=== PATIENT | female | born 1935 | race Caucasian/White ===

== ENCOUNTER 2017-11-27 17:00 | Outpatient (CLI) | payer MEDICARE, OTHER | END 2017-11-27 17:01 | disposition home or self-care (01) | LOC: SLEEPLAB 17:00 | PROVIDERS: ATTEND Internal Medicine | DX: G47.33 Obstructive sleep apnea (adult) (pediatric) (principal); K21.9 Gastro-esophageal reflux disease without esophagitis; I10 Essential (primary) hypertension; R35.1 Nocturia; R06.83 Snoring | CPT/HCPCS: 95806 ==

== ENCOUNTER 2017-12-02 15:03 | Outpatient (CLI) | payer MEDICARE | END 2017-12-02 15:04 | disposition home or self-care (01) | LOC: BICMAMMO 15:03 | PROVIDERS: ATTEND Obstetrics & Gynecology | DX: Z12.31 Encounter for screening mammogram for malignant neoplasm of breast (principal); Z85.3 Personal history of malignant neoplasm of breast | CPT/HCPCS: 77063; 77067 ==

== ENCOUNTER 2019-03-15 09:46 | Emergency (ER) | payer MEDICARE ==
[2019-03-15] MEDS ORDERED: HYDROcodone/Acetaminophen 10/325 mg Tablet ONE (10:07)
--- NOTE | 2019-03-15 10:28 | RAD ---
Exam: AP pelvis: HISTORY: Injury from trauma, fall, pain FINDINGS: Minimally comminuted minimally displaced fractures involving the right superior and inferior pubic ra mi as well as a minimally comminuted fracture involving the right sacral alar region. Bilateral total hip replacement. IMPRESSION: Minimally displaced comminuted fractures involving the right superior and inferior pubic rami and rig ht sacral alar region.
--- NOTE | 2019-03-15 10:30 | RAD ---
Exam: Right hip 2 views: HISTORY: Right hip injury from trauma with pain FINDINGS: Minimally comminuted displaced fractures involving the right superior and inferior pubic rami and rig ht sacral alar region. No evidence for right femur periprosthetic fracture or right hip prosthesis dislocation. IMPRESSION: Right pubic fractures and right sacral alar region fracture.
[2019-03-15 10:50] LABS: #Lymphocytes 1.4 thou/uL (1.20-3.40); #Monocytes 0.9 thou/uL (0.11-0.59); #Neutrophils 5.6 thou/uL (1.40-6.50); %Basophils 0.5 % (0.0-1.0); %Eosinophils 0.3 % (0.0-10.0); %Lymphocytes 17.6 % (21.0-51.0); %Monocytes 11.5 % (0.0-10.0); %Neutrophils 70.1 % (42.0-75.0); Hemoglobin 12.7 g/dL (12.0-16.0); Mean Corpuscular HGB CONC 33.4 g/dL (32.0-36.0); Mean Corpuscular Hemoglobin 31.8 pg (27.0-31.0); Mean Platelet Volume 7.6 fL (7.4-10.4); Platelet Count 192 thou/uL (130-400); RBC Distribution Width 14.6 % (11.5-14.5)
[2019-03-15] MEDS ORDERED: Ondansetron PF 4 MG/2 ML Vial ONE (10:50)
[2019-03-15] MEDS ORDERED: Morphine 2 MG/ML SYRINGE ONE (10:50)
[2019-03-15 10:57] LABS: Prothrombin Time 12.8 SEC (12.0-14.7)
[2019-03-15 10:58] LABS: PTT 35.2 SEC (22.9-36.1)
[2019-03-15 11:10] LABS: ALT (SGPT) 13 U/L (8-55); AST (SGOT) 23 U/L (5-34); Albumin 4.1 g/dL (3.4-4.8); Alkaline Phosphatase 91 U/L (40-150); Anion Gap 16 mmol/L (10-20); BUN (Urea Nitrogen) 22 mg/dL (9.8-20.1); Bilirubin, Total 0.7 mg/dL (0.2-1.2); Calc. Creatinine Clearance 0 mL/min (70-130); Carbon Dioxide 26 mmol/L (23-31); Chloride 99 mmol/L (98-107); Estimated GFR-MDRD 44; Globulin 2.8 g/dL (2.4-3.5); Glucose 110 mg/dL (83-110); Potassium 3.7 mmol/L (3.5-5.1); Protein, Total 6.9 g/dL (6.0-8.3); Sodium 137 mmol/L (136-145)
--- NOTE | 2019-03-15 11:29 | CT ---
CT BRAIN NONCONTRAST: DATE: 03/15/2019 HISTORY: 83-year-old female status post acute head trauma. FINDINGS: There is no evidence of acute intra-axial or extra-axial hemorrhage. There is no midline shift or any other mass effect. There is no extra-axial fluid collection. There is no evidence of obstructive hydrocephalus. Calvarium is intact. There is diffuse brain parenchymal volume loss. There are low att enuation areas in the white matter. These are nonspecific, but in a patient of this age, they are probably chronic ischemic white matter changes due to microvascular atherosclerosis. There are severa l tiny old lacunar infarctions in bilateral basal ganglia. There is a right lateral superficial soft tissue scalp hematoma. IMPRESSION: 1) No acute intracranial findings. 2) involutional changes and chronic ischemic white matter changes. 3) several tiny old lacunar infarctions in bilateral basal ganglia. 4) acute, traumatic right temporal parietal scalp hematoma.
[2019-03-15 12:41] LABS: Bilirubin Negative (Negative); Blood, Urine Negative (Negative); Glucose, Urine (Dipstick) Negative (Negative); Leukocyte Negative (Negative); Nitrite Negative (Negative); Protein, Urine (Dipstick) Negative (Neg-Trace); Urobilinogen 0.2 mg/dL (Less than 2)
[2019-03-15 12:43] LABS: RBC/HPF None Seen HPF (0-3); Squamous Epithelial 0-3 HPF (0-3); WBC/HPF 0-3 HPF (0-3)
[2019-03-15 12:44] LABS: Bacteria/HPF None Seen HPF (None Seen); Clarity Clear (Clear)
== END 2019-03-15 17:02 ==
LOC: ERS 09:46
DX: S32.591A Other specified fracture of right pubis, initial encounter for closed fracture (principal); W18.30XA Fall on same level, unspecified, initial encounter
CPT/HCPCS: 36415; 70450; 72170; 80053; 81003; 85025; 85610; 85730; 93005; 96374; 96375; J2270; J2405

== ENCOUNTER 2023-04-08 23:51 | Inpatient (IN) | payer MEDICARE ==
[2023-04-09 01:29] LABS: #Eosinphils 0.5 thou/uL (0.0-0.7); #Monocytes 0.9 thou/uL (0.11-0.59); #Neutrophils 2.8 thou/uL (1.40-6.50); %Basophils 0.6 % (0.0-1.0); %Eosinophils 8.4 % (0.0-10.0); %Lymphocytes 32.1 % (21.0-51.0); %Monocytes 14.9 % (0.0-10.0); %Neutrophils 43.8 % (42.0-75.0); Hematocrit 42.3 % (36.0-47.0); Mean Corpuscular HGB CONC 33.1 g/dL (32.0-36.0); Mean Corpuscular Hemoglobin 30.4 pg (27.0-31.0); Mean Platelet Volume 10.1 fL (7.4-10.4); Platelet Count 211 10x3/uL (130-400); RBC Distribution Width 13.4 % (11.5-14.5); White Blood Cell (WBC) Count 6.3 10x3/uL (4.8-10.8)
[2023-04-09 01:54] LABS: ALT (SGPT) 9 U/L (8-55); AST (SGOT) 17 U/L (5-34); Albumin 3.7 g/dL (3.4-4.8); Alkaline Phosphatase 78 U/L (40-110); Anion Gap 16 mmol/L (10-20); BUN (Urea Nitrogen) 19 mg/dL (9.8-20.1); Bilirubin, Total 0.3 mg/dL (0.2-1.2); CK (CPK) 72 U/L (29-168); Calc. Creatinine Clearance 0 mL/min (70-130); Carbon Dioxide 24 mmol/L (23-31); Chloride 102 mmol/L (98-107); Estimated GFR 48; Glucose 107 mg/dL (83-110); Potassium 3.9 mmol/L (3.5-5.1); Protein, Total 6.7 g/dL (5.8-8.1); Sodium 138 mmol/L (136-145)
[2023-04-09 03:24] LABS: Bacteria/HPF 1+ HPF (None Seen); Bilirubin Negative (Negative); Blood, Urine Negative (Negative); CAUTI Indications for Culture < 2yrs of age; Clarity Clear (Clear); Glucose, Urine (Dipstick) Normal (Negative); Ketone, Urine Negative (Negative); Leukocyte 250 Leu/uL (Negative); Nitrite 1+ (Negative); Protein, Urine (Dipstick) Negative (Neg-Trace); RBC/HPF None Seen HPF (0-3); Specific Gravity, Urine 1.011 (1.002-1.036); Squamous Epithelial None Seen HPF (0-3); Urobilinogen Normal mg/dL (Less than 2); pH, Urine 6.5 (5.0-9.0)
[2023-04-09 03:27] LABS: Urine Culture Reflex Yes Yes
[2023-04-09 04:07] LABS: Calcium 9.1 mg/dL (7.8-10.44)
[2023-04-09] MEDS ORDERED: cefTRIAXone (ROCEPHIN) 1 GM VIAL ONE (04:32)
[2023-04-09] MEDS ORDERED: Acetaminophen 325 MG TAB PO PRN (05:01)
[2023-04-09] MEDS ORDERED: Lactated Ringer's 1,000 ML IV SCH (05:15)
[2023-04-09 05:40] LABS: Troponin I Less than 0.010 ng/mL (< 0.028)
[2023-04-09] MEDS ORDERED: [UNRECOGNIZED DRUG - OTHER] PO SCH (06:30)
[2023-04-09] MEDS ORDERED: FISH OIL PO SCH (06:30)
[2023-04-09] MEDS ORDERED: EPA PO SCH (06:30)
[2023-04-09] MEDS ORDERED: DHA PO SCH (06:30)
[2023-04-09] MEDS ORDERED: OMEGA PO SCH (06:30)
[2023-04-09 06:48] LABS: Hemoglobin A1c 5.3 % (4.0-6.0)
[2023-04-09] MEDS ORDERED: Lorazepam 1 MG TAB PO SCH (08:45)
[2023-04-09 08:52] LABS: Troponin I Less than 0.010 ng/mL (< 0.028)
[2023-04-09] MEDS ORDERED: Ondansetron ODT 4 MG TAB PO PRN (08:52)
[2023-04-09] MEDS ORDERED: Ondansetron PF 4 MG/2 ML Vial IVP PRN (08:52)
[2023-04-09] MEDS ORDERED: Non-Formulary Item 1 EACH (Potassium Chloride [Potassium Chloride] 10 MEQ Capsule.Er) PO SCH (09:00)
[2023-04-09] MEDS ORDERED: Non-Formulary Item 1 EACH (Sertraline Hcl [Zoloft] 20 MG/1 ML Ml) PO SCH (09:00)
[2023-04-09] MEDS ORDERED: Cetirizine HCl 10 MG TAB PO SCH (09:00)
[2023-04-09] MEDS: Fish Oil 1,000 MG CAP PO SCH (09:20)
[2023-04-09] MEDS: Loratadine 10 MG TAB PO SCH (09:20)
[2023-04-09] MEDS: Potassium Chloride 10 MEQ TAB PO SCH ×2 (09:20→22:58)
[2023-04-09] MEDS: Sertraline 25 MG TAB PO SCH (09:20)
[2023-04-09 10:18] VITALS: BMI 28.3
[2023-04-09] MEDS ORDERED: Aspirin Chewable 81 MG TAB PO SCH (13:30)
[2023-04-09] MEDS ORDERED: Lisinopril 10 MG TAB PO SCH ×2 (15:30→16:30)
[2023-04-09] MEDS ORDERED: hydrALAZINE 20 MG/ML VIAL SLOW IVP PRN (16:22)
[2023-04-09] MEDS ORDERED: Amlodipine 5 MG TAB PO SCH (18:00)
[2023-04-09] MEDS: Atorvastatin Calcium 40 MG TAB PO SCH (22:57)
[2023-04-09] MEDS: Donepezil HCl 10 MG TAB PO SCH (22:57)
[2023-04-10] MEDS ORDERED: cefTRIAXone\\ROCEPHIN 2 GM in Sodium Chloride 0.9% 100 ML IVPB SCH (04:00)
[2023-04-10 05:22] LABS: #Basophils 0.1 thou/uL (0.0-0.2); #Eosinphils 0.4 thou/uL (0.0-0.7); #Neutrophils 2.8 thou/uL (1.40-6.50); %Basophils 0.8 % (0.0-1.0); %Eosinophils 6.6 % (0.0-10.0); %Lymphocytes 33.1 % (21.0-51.0); %Monocytes 15.5 % (0.0-10.0); %Neutrophils 43.8 % (42.0-75.0); Hematocrit 40.5 % (36.0-47.0); Hemoglobin 13.3 g/dL (12.0-16.0); Mean Corpuscular HGB CONC 32.8 g/dL (32.0-36.0); Mean Corpuscular Hemoglobin 30.6 pg (27.0-31.0); Mean Corpuscular Volume 93.1 fl (78.0-98.0); Mean Platelet Volume 9.9 fL (7.4-10.4); Platelet Count 209 10x3/uL (130-400); RBC Distribution Width 13.5 % (11.5-14.5); Red Blood Cell (RBC) Count 4.35 mill/uL (4.20-5.40); White Blood Cell (WBC) Count 6.5 10x3/uL (4.8-10.8)
[2023-04-10 05:46] LABS: ALT (SGPT) 9 U/L (8-55); AST (SGOT) 16 U/L (5-34); Albumin 3.3 g/dL (3.4-4.8); Alkaline Phosphatase 71 U/L (40-110); Anion Gap 13 mmol/L (10-20); BUN (Urea Nitrogen) 17 mg/dL (9.8-20.1); Bilirubin, Total 0.5 mg/dL (0.2-1.2); Calc. Creatinine Clearance 43 mL/min (70-130); Carbon Dioxide 25 mmol/L (23-31); Cardiac Risk 4.1 (Less than 4.5); Chloride 102 mmol/L (98-107); Cholesterol 201 mg/dl (< 200 Desired); Estimated GFR 50; Globulin 2.8 g/dL (2.4-3.5); Glucose 95 mg/dL (83-110); HDL Cholesterol 49 mg/dL (>60 Neg Risk); LDL Cholesterol, Calculated 122 mg/dL; Potassium 3.7 mmol/L (3.5-5.1); Protein, Total 6.1 g/dL (5.8-8.1); Sodium 136 mmol/L (136-145); Triglycerides 149 mg/dL (Less than 150)
[2023-04-10] MEDS: cefTRIAXone\\ROCEPHIN 1 GM in Sodium Chloride 0.9% 100 ML IVPB SCH (06:29)
[2023-04-10] MEDS ORDERED: Lisinopril 10 MG TAB PO SCH (09:00)
[2023-04-10] MEDS: Aspirin 81 mg Enteric Coated Tablet PO SCH (10:00)
[2023-04-10] MEDS: Amlodipine 5 MG TAB PO SCH (10:00)
[2023-04-10] MEDS: Sertraline 25 MG TAB PO SCH (10:00)
[2023-04-10] MEDS: Fish Oil 1,000 MG CAP PO SCH (10:00)
[2023-04-10] MEDS: Loratadine 10 MG TAB PO SCH (10:01)
[2023-04-10] MEDS: Lisinopril 20 MG TAB PO SCH (10:01)
[2023-04-10] MEDS: Potassium Chloride 10 MEQ TAB PO SCH ×2 (10:01→21:15)
[2023-04-10] MEDS: Atorvastatin Calcium 40 MG TAB PO SCH (21:14)
[2023-04-10] MEDS: Donepezil HCl 10 MG TAB PO SCH (21:15)
[2023-04-11 04:26] LABS: #Basophils 0.1 thou/uL (0.0-0.2); #Eosinphils 0.4 thou/uL (0.0-0.7); #Monocytes 1.1 thou/uL (0.11-0.59); #Neutrophils 3.1 thou/uL (1.40-6.50); %Basophils 0.7 % (0.0-1.0); %Eosinophils 6.4 % (0.0-10.0); %Lymphocytes 30.7 % (21.0-51.0); %Monocytes 16.2 % (0.0-10.0); %Neutrophils 45.9 % (42.0-75.0); Hematocrit 42.3 % (36.0-47.0); Hemoglobin 13.8 g/dL (12.0-16.0); Mean Corpuscular HGB CONC 32.6 g/dL (32.0-36.0); Mean Corpuscular Hemoglobin 30.7 pg (27.0-31.0); Mean Platelet Volume 10.2 fL (7.4-10.4); Platelet Count 238 10x3/uL (130-400); RBC Distribution Width 13.7 % (11.5-14.5); White Blood Cell (WBC) Count 6.7 10x3/uL (4.8-10.8)
[2023-04-11 04:51] LABS: ALT (SGPT) 9 U/L (8-55); AST (SGOT) 16 U/L (5-34); Albumin 3.5 g/dL (3.4-4.8); Alkaline Phosphatase 77 U/L (40-110); Anion Gap 14 mmol/L (10-20); BUN (Urea Nitrogen) 21 mg/dL (9.8-20.1); Bilirubin, Total 0.4 mg/dL (0.2-1.2); Calc. Creatinine Clearance 37 mL/min (70-130); Calcium 8.7 mg/dL (7.8-10.44); Carbon Dioxide 22 mmol/L (23-31); Chloride 102 mmol/L (98-107); Estimated GFR 43; Globulin 2.8 g/dL (2.4-3.5); Glucose 100 mg/dL (83-110); Potassium 4.4 mmol/L (3.5-5.1); Protein, Total 6.3 g/dL (5.8-8.1); Sodium 134 mmol/L (136-145)
[2023-04-11] MEDS: cefTRIAXone\\ROCEPHIN 1 GM in Sodium Chloride 0.9% 100 ML IVPB SCH (05:56)
[2023-04-11] MEDS: Aspirin 81 mg Enteric Coated Tablet PO SCH (08:46)
[2023-04-11] MEDS: Fish Oil 1,000 MG CAP PO SCH (08:46)
[2023-04-11] MEDS: Lisinopril 20 MG TAB PO SCH (08:46)
[2023-04-11] MEDS: Sertraline 25 MG TAB PO SCH (08:46)
[2023-04-11] MEDS: Amlodipine 5 MG TAB PO SCH (08:46)
[2023-04-11] MEDS: Loratadine 10 MG TAB PO SCH (08:47)
[2023-04-11] MEDS: Atorvastatin Calcium 40 MG TAB PO SCH (21:47)
[2023-04-11] MEDS: Donepezil HCl 10 MG TAB PO SCH (21:48)
[2023-04-11] MEDS ORDERED: cefTRIAXone (ROCEPHIN) 1 GM VIAL IM SCH (23:00)
[2023-04-12 04:37] LABS: #Eosinphils 0.4 thou/uL (0.0-0.7); #Monocytes 1.1 thou/uL (0.11-0.59); #Neutrophils 4.4 thou/uL (1.40-6.50); %Basophils 0.4 % (0.0-1.0); %Eosinophils 4.9 % (0.0-10.0); %Lymphocytes 22.1 % (21.0-51.0); %Monocytes 14.3 % (0.0-10.0); %Neutrophils 58.2 % (42.0-75.0); Hematocrit 45.3 % (36.0-47.0); Hemoglobin 14.7 g/dL (12.0-16.0); Mean Corpuscular HGB CONC 32.5 g/dL (32.0-36.0); Mean Corpuscular Hemoglobin 30.8 pg (27.0-31.0); Mean Corpuscular Volume 94.8 fl (78.0-98.0); Mean Platelet Volume 10.2 fL (7.4-10.4); Platelet Count 220 10x3/uL (130-400); RBC Distribution Width 13.6 % (11.5-14.5); Red Blood Cell (RBC) Count 4.78 mill/uL (4.20-5.40); White Blood Cell (WBC) Count 7.6 10x3/uL (4.8-10.8)
[2023-04-12 05:03] LABS: ALT (SGPT) 12 U/L (8-55); AST (SGOT) 23 U/L (5-34); Albumin 3.9 g/dL (3.4-4.8); Alkaline Phosphatase 90 U/L (40-110); Anion Gap 14 mmol/L (10-20); BUN (Urea Nitrogen) 20 mg/dL (9.8-20.1); Bilirubin, Total 0.4 mg/dL (0.2-1.2); Calc. Creatinine Clearance 36 mL/min (70-130); Calcium 9.5 mg/dL (7.8-10.44); Carbon Dioxide 24 mmol/L (23-31); Chloride 101 mmol/L (98-107); Estimated GFR 41; Globulin 3.2 g/dL (2.4-3.5); Glucose 119 mg/dL (83-110); Potassium 3.8 mmol/L (3.5-5.1); Protein, Total 7.1 g/dL (5.8-8.1); Sodium 135 mmol/L (136-145)
[2023-04-12] MEDS ORDERED: cefTRIAXone (ROCEPHIN) 1 GM VIAL IM SCH (06:00)
[2023-04-12 07:53] VITALS: BP 166/75; TEMP 97.6
[2023-04-12] MEDS: Sertraline 25 MG TAB PO SCH (08:19)
[2023-04-12] MEDS: Lisinopril 20 MG TAB PO SCH (08:20)
[2023-04-12] MEDS: Loratadine 10 MG TAB PO SCH (08:20)
[2023-04-12] MEDS: Amlodipine 5 MG TAB PO SCH (08:21)
[2023-04-12] MEDS: Fish Oil 1,000 MG CAP PO SCH (08:22)
[2023-04-12] MEDS ORDERED: Aspirin 325 MG TAB PO SCH (09:00)
== END 2023-04-12 10:19 | DRG 65 ==
LOC: ERS 23:51 → ERHOLD 04-09 04:36 → 2SE 04-09 08:10 → OBSVTOIN 04-09 12:55
PROVIDERS: ADMIT Family Medicine; ATTEND Family Medicine
DX: I63.9 Cerebral infarction, unspecified (principal); G81.91 Hemiplegia, unspecified affecting right dominant side; N39.0 Urinary tract infection, site not specified; F03.90 Unspecified dementia, unspecified severity, without behavioral disturbance, psychotic disturbance, mood disturbance, and anxiety; N18.30 Chronic kidney disease, stage 3 unspecified; I12.9 Hypertensive chronic kidney disease with stage 1 through stage 4 chronic kidney disease, or unspecified chronic kidney disease; Z66 Do not resuscitate; B96.20 Unspecified Escherichia coli [E. coli] as the cause of diseases classified elsewhere; E78.5 Hyperlipidemia, unspecified; N18.31 Chronic kidney disease, stage 3a; F32.9 Major depressive disorder, single episode, unspecified; Z96.643 Presence of artificial hip joint, bilateral; Z96.653 Presence of artificial knee joint, bilateral; R53.81 Other malaise; I48.91 Unspecified atrial fibrillation; Z86.718 Personal history of other venous thrombosis and embolism; Z79.899 Other long term (current) drug therapy; Z86.73 Personal history of transient ischemic attack (TIA), and cerebral infarction without residual deficits
CPT/HCPCS: 36415; 70450; 70551; 71045; 80053; 80061; 81001; 82550; 83036; 84443; 84484; 85025; 87077; 87086; 87186; 93005; 93306; 93880; 93970; 95712; 95819; 95957; 96372; 96374; G0378; J0360; J0696; J1650; J3490; J7120

== ENCOUNTER 2023-04-17 17:03 | Inpatient (IN) | payer MEDICARE ==
[2023-04-17 19:40] LABS: #Eosinphils 0.5 thou/uL (0.0-0.7); #Monocytes 0.8 thou/uL (0.11-0.59); #Neutrophils 3.4 thou/uL (1.40-6.50); %Basophils 0.5 % (0.0-1.0); %Eosinophils 7.4 % (0.0-10.0); %Lymphocytes 25.4 % (21.0-51.0); %Monocytes 12.8 % (0.0-10.0); %Neutrophils 53.6 % (42.0-75.0); Hematocrit 40.2 % (36.0-47.0); Hemoglobin 13.2 g/dL (12.0-16.0); Mean Corpuscular HGB CONC 32.8 g/dL (32.0-36.0); Mean Corpuscular Hemoglobin 30.9 pg (27.0-31.0); Mean Corpuscular Volume 94.1 fl (78.0-98.0); Mean Platelet Volume 10.5 fL (7.4-10.4); Platelet Count 219 10x3/uL (130-400); RBC Distribution Width 13.5 % (11.5-14.5); Red Blood Cell (RBC) Count 4.27 mill/uL (4.20-5.40); White Blood Cell (WBC) Count 6.3 10x3/uL (4.8-10.8)
[2023-04-17 20:03] LABS: ALT (SGPT) 14 U/L (8-55); AST (SGOT) 18 U/L (5-34); Albumin 3.6 g/dL (3.4-4.8); Alkaline Phosphatase 84 U/L (40-110); Anion Gap 12 mmol/L (10-20); BUN (Urea Nitrogen) 24 mg/dL (9.8-20.1); Bilirubin, Total 0.4 mg/dL (0.2-1.2); Calc. Creatinine Clearance 0 mL/min (70-130); Calcium 8.9 mg/dL (7.8-10.44); Carbon Dioxide 24 mmol/L (23-31); Chloride 103 mmol/L (98-107); Estimated GFR 51; Globulin 2.8 g/dL (2.4-3.5); Glucose 97 mg/dL (83-110); Lipase 38 U/L (8-78); Magnesium 1.9 mg/dL (1.6-2.6); Protein, Total 6.4 g/dL (5.8-8.1); Sodium 135 mmol/L (136-145)
[2023-04-17 20:07] LABS: Troponin I Less than 0.010 ng/mL (< 0.028)
[2023-04-17 20:33] LABS: Bacteria/HPF None Seen HPF (None Seen); Bilirubin Negative (Negative); Blood, Urine Negative (Negative); CAUTI Indications for Culture Alt mental st,lethar; Clarity Clear (Clear); Glucose, Urine (Dipstick) Normal (Negative); Ketone, Urine Negative (Negative); Leukocyte Negative Leu/uL (Negative); Nitrite Negative (Negative); Protein, Urine (Dipstick) Negative (Neg-Trace); RBC/HPF None Seen HPF (0-3); Specific Gravity, Urine 1.012 (1.002-1.036); Squamous Epithelial None Seen HPF (0-3); Urobilinogen Normal mg/dL (Less than 2); WBC/HPF 0-3 HPF (0-3)
[2023-04-17 20:35] LABS: Urine Culture Reflex No No
[2023-04-17] MEDS ORDERED: Acetaminophen 325 MG TAB PO PRN (22:27)
[2023-04-17] MEDS ORDERED: ALPRAZolam 0.5 MG TAB PO ONE (22:38)
[2023-04-17] MEDS ORDERED: Polyethylene Glycol 3350 17 GM Packet PO PRN (23:04)
[2023-04-17] MEDS ORDERED: Senokot 8.6 MG TAB PO PRN (23:04)
[2023-04-17] MEDS ORDERED: Oxybutynin ER 5 MG TAB PO PRN (23:18)
[2023-04-17] MEDS ORDERED: guaiFENesin 200 MG TAB PO PRN (23:19)
[2023-04-17] MEDS: Lactated Ringer's 1,000 ML IV SCH (23:47)
[2023-04-18 04:13] VITALS: BMI 27.7
[2023-04-18] MEDS: Multivitamin W/ Minerals 1 TAB PO SCH (09:30)
[2023-04-18] MEDS: Cholecalciferol 1,000 UNITS (25 MCG) TAB PO SCH (09:30)
[2023-04-18] MEDS: Sertraline 25 MG TAB PO SCH (09:30)
[2023-04-18] MEDS: Loratadine 10 MG TAB PO SCH (09:30)
[2023-04-18] MEDS: Fish Oil 1,000 MG CAP PO SCH (09:30)
[2023-04-18] MEDS ORDERED: Carvedilol 3.125 MG TAB PO SCH (09:30)
[2023-04-18] MEDS: Fluticasone Propionate Nasal Spray 16 gm Bottle NASAL SCH (09:31)
[2023-04-18] MEDS: Potassium Chloride 10 MEQ TAB PO SCH ×2 (09:31→21:54)
[2023-04-18] MEDS: Lactated Ringer's 1,000 ML IV SCH ×2 (09:31→17:30)
[2023-04-18] MEDS: SYSTANE GEL OPHTH DROPS 10 ML EA EYE SCH ×3 (09:31→22:09)
[2023-04-18] MEDS: Aspirin 325 MG TAB PO SCH (09:31)
[2023-04-18 11:29] LABS: Anion Gap 11 mmol/L (10-20); BUN (Urea Nitrogen) 18 mg/dL (9.8-20.1); Calc. Creatinine Clearance 50 mL/min (70-130); Carbon Dioxide 24 mmol/L (23-31); Chloride 107 mmol/L (98-107); Estimated GFR 65; Glucose 94 mg/dL (83-110); Potassium 3.9 mmol/L (3.5-5.1); Sodium 138 mmol/L (136-145)
[2023-04-18] MEDS: Carvedilol 3.125 MG TAB PO SCH (17:30)
[2023-04-18] MEDS ORDERED: Clopidogrel Bisulfate 75 MG TAB PO SCH (18:30)
[2023-04-18] MEDS ORDERED: [UNRECOGNIZED DRUG - OTHER] EA EYE SCH (21:00)
[2023-04-18] MEDS ORDERED: MINERAL OIL EA EYE SCH (21:00)
[2023-04-18] MEDS ORDERED: PETROLATUM WHITE EA EYE SCH (21:00)
[2023-04-18] MEDS: Donepezil HCl 10 MG TAB PO SCH (21:54)
[2023-04-18] MEDS: Atorvastatin Calcium 40 MG TAB PO SCH (21:55)
[2023-04-19 06:40] LABS: Anion Gap 13 mmol/L (10-20); BUN (Urea Nitrogen) 14 mg/dL (9.8-20.1); Calc. Creatinine Clearance 52 mL/min (70-130); Calcium 8.9 mg/dL (7.8-10.44); Carbon Dioxide 25 mmol/L (23-31); Chloride 102 mmol/L (98-107); Estimated GFR 67; Glucose 87 mg/dL (83-110); Potassium 3.7 mmol/L (3.5-5.1); Sodium 136 mmol/L (136-145)
[2023-04-19] MEDS ORDERED: Senokot 8.6 MG TAB PO PRN (07:45)
[2023-04-19] MEDS ORDERED: Polyethylene Glycol 3350 17 GM Packet PO PRN (07:45)
[2023-04-19] MEDS: Aspirin 325 MG TAB PO SCH (08:46)
[2023-04-19] MEDS: Fish Oil 1,000 MG CAP PO SCH (08:47)
[2023-04-19] MEDS: Cholecalciferol 1,000 UNITS (25 MCG) TAB PO SCH (08:47)
[2023-04-19] MEDS: Sertraline 25 MG TAB PO SCH (08:48)
[2023-04-19] MEDS: Lisinopril 20 MG TAB PO SCH (08:48)
[2023-04-19] MEDS: Clopidogrel Bisulfate 75 MG TAB PO SCH (08:48)
[2023-04-19] MEDS: Loratadine 10 MG TAB PO SCH (08:48)
[2023-04-19] MEDS: Potassium Chloride 10 MEQ TAB PO SCH ×2 (08:48→21:44)
[2023-04-19] MEDS: Carvedilol 3.125 MG TAB PO SCH ×2 (08:48→17:13)
[2023-04-19] MEDS: Multivitamin W/ Minerals 1 TAB PO SCH (08:52)
[2023-04-19] MEDS: SYSTANE GEL OPHTH DROPS 10 ML EA EYE SCH ×3 (08:52→21:52)
[2023-04-19] MEDS: Fluticasone Propionate Nasal Spray 16 gm Bottle NASAL SCH (09:05)
[2023-04-19] MEDS ORDERED: Pantoprazole 40 MG GRANULES PACKET PO SCH (21:00)
[2023-04-19] MEDS: Atorvastatin Calcium 40 MG TAB PO SCH (21:44)
[2023-04-19] MEDS: Donepezil HCl 10 MG TAB PO SCH (21:44)
[2023-04-19] MEDS: Lansoprazole 15 MG/5 ML (BATCHED)UDCUP PER TUBE SCH (21:44)
[2023-04-20 05:24] LABS: Anion Gap 12 mmol/L (10-20); BUN (Urea Nitrogen) 15 mg/dL (9.8-20.1); Calc. Creatinine Clearance 40 mL/min (70-130); Calcium 9.2 mg/dL (7.8-10.44); Carbon Dioxide 25 mmol/L (23-31); Chloride 101 mmol/L (98-107); Estimated GFR 50; Glucose 93 mg/dL (83-110); Sodium 134 mmol/L (136-145)
[2023-04-20] MEDS: SYSTANE GEL OPHTH DROPS 10 ML EA EYE SCH ×4 (08:51→23:16)
[2023-04-20] MEDS: Potassium Chloride 10 MEQ TAB PO SCH ×2 (08:55→20:57)
[2023-04-20] MEDS: Sertraline 25 MG TAB PO SCH (08:55)
[2023-04-20] MEDS: Loratadine 10 MG TAB PO SCH (08:55)
[2023-04-20] MEDS: Aspirin 325 MG TAB PO SCH (08:55)
[2023-04-20] MEDS: Cholecalciferol 1,000 UNITS (25 MCG) TAB PO SCH (08:56)
[2023-04-20] MEDS: Lisinopril 20 MG TAB PO SCH (08:56)
[2023-04-20] MEDS: Carvedilol 3.125 MG TAB PO SCH ×2 (08:56→18:04)
[2023-04-20] MEDS: Lansoprazole 15 MG/5 ML (BATCHED)UDCUP PER TUBE SCH ×2 (08:56→20:57)
[2023-04-20] MEDS: Clopidogrel Bisulfate 75 MG TAB PO SCH (08:56)
[2023-04-20] MEDS: Multivitamin W/ Minerals 1 TAB PO SCH (08:56)
[2023-04-20] MEDS: Fish Oil 1,000 MG CAP PO SCH (08:56)
[2023-04-20] MEDS: Fluticasone Propionate Nasal Spray 16 gm Bottle NASAL SCH (08:57)
[2023-04-20] MEDS ORDERED: Lansoprazole 15 MG/5 ML (BATCHED)UDCUP PER TUBE SCH (09:00)
[2023-04-20 19:59] LABS: #Eosinphils 0.4 thou/uL (0.0-0.7); #Neutrophils 3.3 thou/uL (1.40-6.50); %Basophils 0.5 % (0.0-1.0); %Eosinophils 6.5 % (0.0-10.0); %Lymphocytes 28.2 % (21.0-51.0); %Monocytes 14.5 % (0.0-10.0); %Neutrophils 50.1 % (42.0-75.0); Hematocrit 39.1 % (36.0-47.0); Hemoglobin 13.1 g/dL (12.0-16.0); Mean Corpuscular HGB CONC 33.5 g/dL (32.0-36.0); Mean Corpuscular Volume 92.4 fl (78.0-98.0); Mean Platelet Volume 10.3 fL (7.4-10.4); Platelet Count 224 10x3/uL (130-400); RBC Distribution Width 13.7 % (11.5-14.5); Red Blood Cell (RBC) Count 4.23 mill/uL (4.20-5.40); White Blood Cell (WBC) Count 6.6 10x3/uL (4.8-10.8)
[2023-04-20 20:21] LABS: ALT (SGPT) 12 U/L (8-55); AST (SGOT) 18 U/L (5-34); Albumin 3.4 g/dL (3.4-4.8); Alkaline Phosphatase 69 U/L (40-110); Anion Gap 13 mmol/L (10-20); BUN (Urea Nitrogen) 19 mg/dL (9.8-20.1); Bilirubin, Total 0.3 mg/dL (0.2-1.2); CK (CPK) 44 U/L (29-168); Calc. Creatinine Clearance 31 mL/min (70-130); Calcium 8.7 mg/dL (7.8-10.44); Carbon Dioxide 25 mmol/L (23-31); Chloride 98 mmol/L (98-107); Estimated GFR 37; Globulin 2.6 g/dL (2.4-3.5); Glucose 120 mg/dL (83-110); Potassium 4.3 mmol/L (3.5-5.1); Sodium 132 mmol/L (136-145)
[2023-04-20 20:24] LABS: PTT 35.3 sec (22.9-36.1); Prothrombin Time 13.9 sec (12.0-14.7)
[2023-04-20] MEDS: Atorvastatin Calcium 40 MG TAB PO SCH (20:55)
[2023-04-20] MEDS: Donepezil HCl 10 MG TAB PO SCH (20:55)
[2023-04-20 23:17] LABS: Troponin I Less than 0.010 ng/mL (< 0.028)
[2023-04-21] MEDS ORDERED: Lactated Ringer's 1,000 ML IV SCH (02:15)
[2023-04-21 05:05] LABS: Anion Gap 12 mmol/L (10-20); BUN (Urea Nitrogen) 19 mg/dL (9.8-20.1); Calc. Creatinine Clearance 34 mL/min (70-130); Calcium 8.9 mg/dL (7.8-10.44); Carbon Dioxide 27 mmol/L (23-31); Chloride 100 mmol/L (98-107); Estimated GFR 41; Glucose 88 mg/dL (83-110); Potassium 4.4 mmol/L (3.5-5.1); Sodium 135 mmol/L (136-145)
[2023-04-21] MEDS: Lisinopril 20 MG TAB PO SCH (08:25)
[2023-04-21] MEDS: Sertraline 25 MG TAB PO SCH (08:26)
[2023-04-21] MEDS: Clopidogrel Bisulfate 75 MG TAB PO SCH (08:26)
[2023-04-21] MEDS: Potassium Chloride 10 MEQ TAB PO SCH ×2 (08:26→20:20)
[2023-04-21] MEDS: Aspirin 325 MG TAB PO SCH (08:26)
[2023-04-21] MEDS: Multivitamin W/ Minerals 1 TAB PO SCH (08:26)
[2023-04-21] MEDS: Cholecalciferol 1,000 UNITS (25 MCG) TAB PO SCH (08:26)
[2023-04-21] MEDS: Carvedilol 3.125 MG TAB PO SCH ×2 (08:27→17:43)
[2023-04-21] MEDS: Fish Oil 1,000 MG CAP PO SCH (08:30)
[2023-04-21] MEDS: Loratadine 10 MG TAB PO SCH (08:31)
[2023-04-21] MEDS: Lansoprazole 15 MG/5 ML (BATCHED)UDCUP PER TUBE SCH ×2 (09:19→20:20)
[2023-04-21] MEDS: SYSTANE GEL OPHTH DROPS 10 ML EA EYE SCH ×3 (09:20→20:19)
[2023-04-21] MEDS: Fluticasone Propionate Nasal Spray 16 gm Bottle NASAL SCH (09:21)
[2023-04-21] MEDS: Donepezil HCl 10 MG TAB PO SCH (20:20)
[2023-04-21] MEDS: Atorvastatin Calcium 40 MG TAB PO SCH (20:20)
[2023-04-22 05:30] LABS: Anion Gap 13 mmol/L (10-20); BUN (Urea Nitrogen) 23 mg/dL (9.8-20.1); Calc. Creatinine Clearance 44 mL/min (70-130); Calcium 8.8 mg/dL (7.8-10.44); Carbon Dioxide 27 mmol/L (23-31); Chloride 101 mmol/L (98-107); Estimated GFR 56; Glucose 98 mg/dL (83-110); Sodium 137 mmol/L (136-145)
[2023-04-22] MEDS: Fluticasone Propionate Nasal Spray 16 gm Bottle NASAL SCH (09:13)
[2023-04-22] MEDS: SYSTANE GEL OPHTH DROPS 10 ML EA EYE SCH ×2 (09:13→16:17)
[2023-04-22] MEDS: Sertraline 25 MG TAB PO SCH (09:17)
[2023-04-22] MEDS: Clopidogrel Bisulfate 75 MG TAB PO SCH (09:18)
[2023-04-22] MEDS: Multivitamin W/ Minerals 1 TAB PO SCH (09:18)
[2023-04-22] MEDS: Loratadine 10 MG TAB PO SCH (09:18)
[2023-04-22] MEDS: Carvedilol 3.125 MG TAB PO SCH ×2 (09:18→16:18)
[2023-04-22] MEDS: Lisinopril 20 MG TAB PO SCH (09:18)
[2023-04-22] MEDS: Cholecalciferol 1,000 UNITS (25 MCG) TAB PO SCH (09:18)
[2023-04-22] MEDS: Aspirin 325 MG TAB PO SCH (09:18)
[2023-04-22] MEDS: Potassium Chloride 10 MEQ TAB PO SCH (09:18)
[2023-04-22] MEDS: Fish Oil 1,000 MG CAP PO SCH (09:19)
[2023-04-22] MEDS: Lansoprazole 15 MG/5 ML (BATCHED)UDCUP PER TUBE SCH (09:19)
[2023-04-22 12:35] VITALS: BP 134/67; TEMP 97.7
== END 2023-04-22 16:56 | DRG 64 ==
LOC: ERS 17:03 → ERHOLD 22:27 → IMCU/EMU 04-18 04:07 → OBSVTOIN 04-18 11:50 → 2SE 04-18 19:58
PROVIDERS: ADMIT Student in an Organized Health Care Education/Training Program; ATTEND Student in an Organized Health Care Education/Training Program
DX: I63.81 Other cerebral infarction due to occlusion or stenosis of small artery (principal); J69.0 Pneumonitis due to inhalation of food and vomit; J96.01 Acute respiratory failure with hypoxia; G81.91 Hemiplegia, unspecified affecting right dominant side; J90 Pleural effusion, not elsewhere classified; N17.9 Acute kidney failure, unspecified; F03.90 Unspecified dementia, unspecified severity, without behavioral disturbance, psychotic disturbance, mood disturbance, and anxiety; Z66 Do not resuscitate; N18.30 Chronic kidney disease, stage 3 unspecified; I12.9 Hypertensive chronic kidney disease with stage 1 through stage 4 chronic kidney disease, or unspecified chronic kidney disease; E78.5 Hyperlipidemia, unspecified; F32.9 Major depressive disorder, single episode, unspecified; H35.30 Unspecified macular degeneration; I44.0 Atrioventricular block, first degree; R00.1 Bradycardia, unspecified; R13.10 Dysphagia, unspecified; Z96.643 Presence of artificial hip joint, bilateral; Z96.653 Presence of artificial knee joint, bilateral; Z95.818 Presence of other cardiac implants and grafts; R47.01 Aphasia; Z79.899 Other long term (current) drug therapy; Z79.82 Long term (current) use of aspirin; E86.0 Dehydration; R29.724 NIHSS score 24; Z87.440 Personal history of urinary (tract) infections
CPT/HCPCS: 36415; 36416; 51701; 70450; 70551; 71045; 80048; 80053; 81001; 82550; 83605; 83690; 83735; 83880; 84443; 84484; 85025; 85610; 85730; 93005; 93010; 96372; G0378; J1650; J7120